=== PATIENT | female | born 1985 | race Caucasian/White ===

== ENCOUNTER 2019-05-18 16:04 | Emergency (ER) | payer OTHER ==
[~2019-05-18] VITALS: Ht 165.1 cm; Wt 93.4 kg
[2019-05-18 16:18] VITALS: BP 133/88
== END 2019-05-18 19:35 | disposition home or self-care (01) ==
LOC: ED 16:04
DX: M79.674 Pain in right toe(s) (principal); Z98.51 Tubal ligation status